=== PATIENT | female | born 1970 | race Caucasian/White ===

== ENCOUNTER 2017-12-30 07:54 | Outpatient (CLI) | payer BC ==
[2017-12-30 17:31] LABS: RUBELLA AB, IgG 19.6 IU/mL
== END 2017-12-30 07:55 ==
LOC: LAB 07:54
PROVIDERS: ATTEND Nurse Practitioner Family
DX: Z01.84 Encounter for antibody response examination (principal)
CPT/HCPCS: 86762; 86765